=== PATIENT | female | born 1985 ===

== ENCOUNTER 2021-06-03 23:12 | Inpatient (IN) | payer OTHER, SELFPAY ==
[2021-06-04] MEDS ORDERED: SODIUM CHLORIDE 0.9% 1000 ML 1,000 ML IV ONE (00:46)
--- NOTE | 2021-06-04 00:49 | Event Note ---
ED Screening Note Date of service: 06/04/21 Time: 00:47 ED Screening Note: 35-year-old female patient presents to emergency department with complaints of fever, chest pain, and shortness of breath for 1 week. No known sick contacts. No current steroid or antibiotic use. No recent travel. Last dose of Tylenol was this morning. Patient has not received her COVID-19 vaccination series. Blood pressure in triage 96/62. Pulse oximetry 90%. General: Awake, appropriately interactive, no acute distress. Neck: Supple. Full range of motion intact. Cardiovascular: Normal peripheral perfusion. Pulmonary: No respiratory distress. Patient is speaking normally without use of accessory muscles. Skin: No apparent rashes or lesions. Neurological: No facial asymmetry. Speech is clear. Follows commands. Patient is alert and oriented. Musculoskeletal: Moves all four extremities spontaneously with normal range of motion. Psych: Cooperative. Appropriate mood and affect. Ordered labs, chest x-ray, IV fluids, and blood cultures per sepsis protocol. media monitor and continuous pulse oximetry monitoring requested. Peripheral IV access requested. Attending emergency physician aware. I have greeted and performed a focused rapid initial assessment of this patient. A comprehensive ED assessment and evaluation of the patient, analysis of all test results, and completion of the medical decision-making process will be conducted by additional ED providers. This initial assessment/diagnostic orders/clinical plan/treatment(s) is/are subject to change based on patients health status, clinical progression and re-assessment. Further treatment and workup at subsequent clinical provider's discretion. Patient/guardian urged not to elope from the ED as their condition may be serious if not clinically assessed and managed.
[2021-06-04 01:00] LABS: Basophils % (Auto) 0.1 % (0.0-1.8); Hematocrit 42.4 % (30.3-42.9); Hemoglobin 14.8 gm/dl (10.1-14.3); Lymphocytes # (Auto) 1.3 K/mm3 (1.2-5.4); Lymphocytes % (Auto) 11.6 % (13.4-35.0); Mean Corpuscular HGB Conc 35 % (30-34); Mean Corpuscular Volume 90 fl (79-97); Monocytes # (Auto) 0.5 K/mm3 (0.0-0.8); Monocytes % (Auto) 4.6 % (0.0-7.3); Platelet Count 217 K/mm3 (140-440); Red Blood Count 4.73 M/mm3 (3.65-5.03)
--- NOTE | 2021-06-04 01:08 | XRay Report ---
CHEST 1 VIEW 06/04/2021 12:41 AM INDICATION / CLINICAL INFORMATION: OCTAVIO. COMPARISON: None available. FINDINGS: SUPPORT DEVICES: None. HEART / MEDIASTINUM: No significant abnormality. LUNGS / PLEURA: Diffuse bilateral patchy opacities No pneumothorax. ADDITIONAL FINDINGS: No significant additional findings. IMPRESSION: 1. Diffuse bilateral pulmonary opacities could represent pneumonia. Follow-up recommended. Signer Name: Mike Mccall MD Signed: 06/04/2021 1:04 AM Workstation Name: [email or web address]
[2021-06-04 01:19] LABS: Alanine Aminotransferase 56 units/L (7-56); Albumin 3.8 g/dL (3.9-5); BUN/Creatinine Ratio 15; Blood Urea Nitrogen 9 mg/dL (7-17); Hemolysis Index 1
[2021-06-04] MEDS ORDERED: cefTRIAXone/NS 2 GM/100 ML 2 GM/100 ML BAG IV ONE (06:09)
[2021-06-04] MEDS ORDERED: AZITHROMYCIN/NS 500 MG/250 ML 500 MG/250 ML BAG IV ONE (06:09)
[2021-06-04] MEDS ORDERED: dexAMETHasone 4 MG/ML VIAL IV ONE (06:09)
--- NOTE | 2021-06-04 06:38 | Emergency Department Report ---
ED Fever HPI - General Chief Complaint: Fever Stated Complaint: COVID LIKE SYMPTOMS Time Seen by Provider: 06/04/21 06:07 Source: patient Exam Limitations: language barrier - History of Present Illness Initial Comments: 35-year-old female with no significant past medical history presents to the hospital complaining of fevers, body aches, and nonproductive cough x1 week. Patient also having shortness of breath worse with exertion. She has a child at home with ear infection. Diarrhea without nausea or vomiting reported. She is not immunized for Covid. She had outpatient Covid test on the that was negative. Patient hypoxic with an O2 sat of 89 to 90% saturation on room air ED Review of Systems ROS: Stated complaint: COVID LIKE SYMPTOMS Other details as noted in HPI Comment: All other systems reviewed and negative ED Past Medical Hx - Past Medical History Previous Medical History?: No - Surgical History Past Surgical History?: No ED Physical Exam - General Limitations: No Limitations - Other Other exam information: General: No acute distress Head: Atraumatic Eyes: normal appearance Neck: Normal appearance, no midline tenderness Chest: Clear to auscultation bilaterally CV: Regular rate and rhythm Abdomen: Soft, normal bowel sounds, nontender, nondistended, no rebound or guarding Back: Normal inspection Extremity: Normal inspection, full range of motion, no calf tenderness or leg edema Neuro: Alert O x 3, no facial asymmetry, speech clear, no gross motor sensory deficit Psych: Appropriate behavior Skin: No rash ED Course Vital Signs 06/04/21 06/04/21 06/04/21 00:17 03:44 03:46 Temperature 98.3 F Pulse Rate 88 80 80 Respiratory 16 16 Rate Blood Pressure 109/60 Blood Pressure 109/60 [Left] Blood Pressure 96/62 [Right] O2 Sat by Pulse 90 90 89 Oximetry 06/04/21 06/04/21 06/04/21 05:59 06:00 06:16 Temperature Pulse Rate 70 Respiratory 22 Rate Blood Pressure 126/69 126/69 Blood Pressure [Left] Blood Pressure [Right] O2 Sat by Pulse 92 95 97 Oximetry ED Medical Decision Making - Lab Data Result diagrams: 06/04/21 00:42 06/04/21 00:42 Lab Results 06/04/21 06/04/21 06/04/21 Range/Units 00:42 00:42 00:56 WBC 11.3 H (4.5-11.0) K/mm3 RBC 4.73 (3.65-5.03) M/mm3 Hgb 14.8 H (10.1-14.3) gm/dl Hct 42.4 (30.3-42.9) % MCV 90 (79-97) fl MCH 31 (28-32) pg MCHC 35 H (30-34) % RDW 13.0 L (13.2-15.2) % Plt Count 217 (140-440) K/mm3 Lymph % (Auto) 11.6 L (13.4-35.0) % [place] % (Auto) 4.6 (0.0-7.3) % Eos % (Auto) 0.0 (0.0-4.3) % Baso % (Auto) 0.1 (0.0-1.8) % Lymph # (Auto) 1.3 (1.2-5.4) K/mm3 [place] # (Auto) 0.5 (0.0-0.8) K/mm3 Eos # (Auto) 0.0 (0.0-0.4) K/mm3 Baso # (Auto) 0.0 (0.0-0.1) K/mm3 Seg Neutrophils % 83.7 H (40.0-70.0) % Seg Neutrophils # 9.5 H (1.8-7.7) K/mm3 Sodium 140 (137-145) mmol/L Potassium 4.2 (3.6-5.0) mmol/L Chloride 102.0 (98-107) mmol/L Carbon Dioxide 30 (22-30) mmol/L Anion Gap 12 mmol/L BUN 9 (7-17) mg/dL Creatinine 0.6 (0.6-1.2) mg/dL Estimated GFR > 60 ml/min BUN/Creatinine Ratio 15 % Glucose 150 H (65-100) mg/dL Lactic Acid 2.40 H* (0.7-2.0) mmol/L Calcium 9.0 (8.4-10.2) mg/dL Magnesium (1.7-2.3) mg/dL Total Bilirubin 0.50 (0.1-1.2) mg/dL AST 36 (5-40) units/L ALT 56 (7-56) units/L Alkaline Phosphatase 75 (35-129) units/L Total Protein 7.2 (6.3-8.2) g/dL Albumin 3.8 L (3.9-5) g/dL Albumin/Globulin Ratio 1.1 % HCG, Qual (Negative) 06/04/21 06/04/21 06/04/21 Range/Units 00:56 00:56 01:52 WBC (4.5-11.0) K/mm3 RBC (3.65-5.03) M/mm3 Hgb (10.1-14.3) gm/dl Hct (30.3-42.9) % MCV (79-97) fl MCH (28-32) pg MCHC (30-34) % RDW (13.2-15.2) % Plt Count (140-440) K/mm3 Lymph % (Auto) (13.4-35.0) % [place] % (Auto) (0.0-7.3) % Eos % (Auto) (0.0-4.3) % Baso % (Auto) (0.0-1.8) % Lymph # (Auto) (1.2-5.4) K/mm3 [place] # (Auto) (0.0-0.8) K/mm3 Eos # (Auto) (0.0-0.4) K/mm3 Baso # (Auto) (0.0-0.1) K/mm3 Seg Neutrophils % (40.0-70.0) % Seg Neutrophils # (1.8-7.7) K/mm3 Sodium (137-145) mmol/L Potassium (3.6-5.0) mmol/L Chloride (98-107) mmol/L Carbon Dioxide (22-30) mmol/L Anion Gap mmol/L BUN (7-17) mg/dL Creatinine (0.6-1.2) mg/dL Estimated GFR ml/min BUN/Creatinine Ratio % Glucose (65-100) mg/dL Lactic Acid 2.00 (0.7-2.0) mmol/L Calcium (8.4-10.2) mg/dL Magnesium 2.10 (1.7-2.3) mg/dL Total Bilirubin (0.1-1.2) mg/dL AST (5-40) units/L ALT (7-56) units/L Alkaline Phosphatase (35-129) units/L Total Protein (6.3-8.2) g/dL Albumin (3.9-5) g/dL Albumin/Globulin Ratio % HCG, Qual Negative (Negative) 06/04/21 Range/Units 04:57 WBC (4.5-11.0) K/mm3 RBC (3.65-5.03) M/mm3 Hgb (10.1-14.3) gm/dl Hct (30.3-42.9) % MCV (79-97) fl MCH (28-32) pg MCHC (30-34) % RDW (13.2-15.2) % Plt Count (140-440) K/mm3 Lymph % (Auto) (13.4-35.0) % [place] % (Auto) (0.0-7.3) % Eos % (Auto) (0.0-4.3) % Baso % (Auto) (0.0-1.8) % Lymph # (Auto) (1.2-5.4) K/mm3 [place] # (Auto) (0.0-0.8) K/mm3 Eos # (Auto) (0.0-0.4) K/mm3 Baso # (Auto) (0.0-0.1) K/mm3 Seg Neutrophils % (40.0-70.0) % Seg Neutrophils # (1.8-7.7) K/mm3 Sodium (137-145) mmol/L Potassium (3.6-5.0) mmol/L Chloride (98-107) mmol/L Carbon Dioxide (22-30) mmol/L Anion Gap mmol/L BUN (7-17) mg/dL Creatinine (0.6-1.2) mg/dL Estimated GFR ml/min BUN/Creatinine Ratio % Glucose (65-100) mg/dL Lactic Acid 1.60 (0.7-2.0) mmol/L Calcium (8.4-10.2) mg/dL Magnesium (1.7-2.3) mg/dL Total Bilirubin (0.1-1.2) mg/dL AST (5-40) units/L ALT (7-56) units/L Alkaline Phosphatase (35-129) units/L Total Protein (6.3-8.2) g/dL Albumin (3.9-5) g/dL Albumin/Globulin Ratio % HCG, Qual (Negative) - Radiology Data Radiology results: report reviewed CHEST 1 VIEW 06/04/2021 12:41 AM INDICATION / CLINICAL INFORMATION: OCTAVIO. COMPARISON: None available. FINDINGS: SUPPORT DEVICES: None. HEART / MEDIASTINUM: No significant abnormality. LUNGS / PLEURA: Diffuse bilateral patchy opacities No pneumothorax. ADDITIONAL FINDINGS: No significant additional findings. IMPRESSION: 1. Diffuse bilateral pulmonary opacities could represent pneumonia. Follow-up recommended. - Medical Decision Making 35-year-old female no significant past medical history presents with possible bilateral interstitial pneumonia highly suspicious for COVID-19. Patient is not immunized. Patient does not meet criteria for severe sepsis or septic shock. Patient's MAP remained greater than 65 throughout duration ED stay with further improvement after normal saline 1 L bolus. Patient treated with Rocephin, gentamicin, Decadron, supplemental oxygenation. Patient to be admitted to the hospital service with ID consultation case d/w DR Jasmine at 8:16am, pt to be admitted Kd Critical Care Time: No Critical care attestation.: If time is entered above; I have spent that time in minutes in the direct care of this critically ill patient, excluding procedure time. ED Disposition Clinical Impression: Bilateral interstitial pneumonia, Hypoxia, Suspected COVID-19 virus infection, COVID-19 vaccination not done Disposition: ADMITTED INPATIENT Is pt being admited?: Yes Condition: Stable Instructions: Bacterial Pneumonia (ED) Time of Disposition: 06:38 (Dr Jasmine/Kd)
[2021-06-04 08:18] LABS: C-Reactive Protein 7.2 mg/dL (0.00-1.30)
[2021-06-04] MEDS ORDERED: ONDANSETRON 4 MG/2 ML INJ IV PRN (10:24)
[2021-06-04] MEDS ORDERED: ACETAMINOPHEN 325 MG TAB PO PRN (10:24)
[2021-06-04] MEDS ORDERED: MORPHINE 4 MG/1 ML INJ IV PRN (10:24)
[2021-06-04] MEDS ORDERED: HYDROcodone/ACETAMINOPHEN 5-325 MG TAB PO PRN (10:24)
--- NOTE | 2021-06-04 10:24 | History and Physical Report ---
History of Present Illness Date of examination: 06/04/21 Date of admission: 06/04/21 08:17 Chief complaint: Cough cold-like symptom, Covid suspect History of present illness: 35-year-old female with no significant past medical history presents to the hospital complaining of fevers, body aches, and nonproductive cough x1 week. Patient also having shortness of breath worse with exertion. She has a child at home with ear infection. Diarrhea without nausea or vomiting reported. She is not immunized for Covid. She had outpatient Covid test on the that was negative. Patient hypoxic with an O2 sat of 89 to 90% saturation on room air. Patient denies any chest pain. No headache or visual disturbances Past History Past Medical History: No medical history Past Surgical History: No surgical history Social history: no significant social history Family history: no significant family history Medications and Allergies Allergies Allergy/AdvReac Type Severity Reaction Status Date / Time No Known Allergies Allergy Unverified 06/04/21 00:16 Review of Systems All systems: negative Exam - Constitutional Vitals: Temp Pulse Resp BP Pulse Ox 98.3 F 70 22 126/69 97 06/04/21 00:17 06/04/21 06:16 06/04/21 06:16 06/04/21 06:16 06/04/21 06:16 General appearance: Present: no acute distress, well-nourished - EENT Eyes: Present: PERRL ENT: hearing intact, clear oral mucosa - Neck Neck: Present: supple, normal ROM - Respiratory Respiratory effort: normal Respiratory: bilateral: CTA - Cardiovascular Heart Sounds: Present: S1 & S2. Absent: rub, click - Extremities Extremities: pulses symmetrical, No edema Peripheral Pulses: within normal limits - Abdominal General gastrointestinal: Present: soft, non-tender, non-distended, normal bowel sounds Female genitourinary: Present: normal - Integumentary Integumentary: Present: clear, warm, dry - Musculoskeletal Musculoskeletal: gait normal, strength equal bilaterally - Psychiatric Psychiatric: appropriate mood/affect, intact judgment & insight - Neurologic Neurologic: CNII-XII intact, moves all extremities Results - Labs CBC & Chem 7: 06/04/21 00:42 06/04/21 06:53 Labs: Laboratory Last Values WBC 11.3 K/mm3 (4.5-11.0) H 06/04/21 00:42 RBC 4.73 M/mm3 (3.65-5.03) 06/04/21 00:42 Hgb 14.8 gm/dl (10.1-14.3) H 06/04/21 00:42 Hct 42.4 % (30.3-42.9) 06/04/21 00:42 MCV 90 fl (79-97) 06/04/21 00:42 MCH 31 pg (28-32) 06/04/21 00:42 MCHC 35 % (30-34) H 06/04/21 00:42 RDW 13.0 % (13.2-15.2) L 06/04/21 00:42 Plt Count 217 K/mm3 (140-440) 06/04/21 00:42 Lymph % (Auto) 11.6 % (13.4-35.0) L 06/04/21 00:42 [place] % (Auto) 4.6 % (0.0-7.3) 06/04/21 00:42 Eos % (Auto) 0.0 % (0.0-4.3) 06/04/21 00:42 Baso % (Auto) 0.1 % (0.0-1.8) 06/04/21 00:42 Lymph # (Auto) 1.3 K/mm3 (1.2-5.4) 06/04/21 00:42 [place] # (Auto) 0.5 K/mm3 (0.0-0.8) 06/04/21 00:42 Eos # (Auto) 0.0 K/mm3 (0.0-0.4) 06/04/21 00:42 Baso # (Auto) 0.0 K/mm3 (0.0-0.1) 06/04/21 00:42 Seg Neutrophils % 83.7 % (40.0-70.0) H 06/04/21 00:42 Seg Neutrophils # 9.5 K/mm3 (1.8-7.7) H 06/04/21 00:42 D-Dimer 216.93 ng/mlDDU (0-234) 06/04/21 06:53 Sodium 140 mmol/L (137-145) 06/04/21 00:42 Potassium 4.2 mmol/L (3.6-5.0) 06/04/21 00:42 Chloride 102.0 mmol/L (98-107) 06/04/21 00:42 Carbon Dioxide 30 mmol/L (22-30) 06/04/21 00:42 Anion Gap 12 mmol/L 06/04/21 00:42 BUN 9 mg/dL (7-17) 06/04/21 00:42 Creatinine 0.6 mg/dL (0.6-1.2) 06/04/21 00:42 Estimated GFR > 60 ml/min 06/04/21 00:42 BUN/Creatinine Ratio 15 % 06/04/21 00:42 Glucose 128 mg/dL (65-100) H 06/04/21 06:53 Lactic Acid 1.60 mmol/L (0.7-2.0) 06/04/21 04:57 Calcium 9.0 mg/dL (8.4-10.2) 06/04/21 00:42 Magnesium 2.10 mg/dL (1.7-2.3) 06/04/21 00:56 Ferritin 840.9 ng/mL (10.0-200.0) H 06/04/21 06:53 Total Bilirubin 0.50 mg/dL (0.1-1.2) 06/04/21 00:42 AST 36 units/L (5-40) 06/04/21 00:42 ALT 56 units/L (7-56) 06/04/21 00:42 Alkaline Phosphatase 75 units/L (35-129) 06/04/21 00:42 Lactate Dehydrogenase 297 units/L (91-180) H 06/04/21 06:53 C-Reactive Protein 7.20 mg/dL (0.00-1.30) H 06/04/21 06:53 Total Protein 7.2 g/dL (6.3-8.2) 06/04/21 00:42 Albumin 3.8 g/dL (3.9-5) L 06/04/21 00:42 Albumin/Globulin Ratio 1.1 % 06/04/21 00:42 HCG, Qual Negative (Negative) 06/04/21 00:56 Microbiology: Microbiology 06/04/21 00:56 Peripheral/Venous Blood Culture - Preliminary Culture in Progress 06/04/21 00:52 Peripheral/Venous Blood Culture - Preliminary Culture in Progress Assessment and Plan Assessment and plan: Suspected COVID-19 pneumonia. Chest x-ray reveals bilateral opacities employer relations representative of pneumonia. Bilateral pneumonia. SIRS. The patient remains afebrile with white count of 11.3. Patient does have tachypnea with respiratory rate of 22. 06/04/2021. The patient will be admitted and placed on the Covid protocol. The patient appears to have mild hypoxia present. We will start dexamethasone empirically for now. Hold on remdesivir for now. ID consultation. Continue to trend inflammatory markers. Initial inflammatory markers reveal D-dimer 216, LDH 297, CRP 7.2 and ferritin 840. Check procalcitonin levels.
[2021-06-04] MEDS ORDERED: MORPHINE 2 MG/1 ML INJ IV PRN (10:45)
--- NOTE | 2021-06-04 17:19 | Consultation ---
History of Present Illness - Reason for Consult Consult date: 06/04/21 COVID - History of Present Illness 25-year-old female with history of obesity, admitted on 06/04/2021 secondary to a week history of body aches, malaise, fever, cough and progressive shortness of breath. She also reported diarrhea. She did not receive COVID-19 vaccination. She tested negative for COVID-19 on 05/31/2021. On arrival, O2 sat down to 89%. Chest x-ray with bilateral diffuse airspace disease. Review of Systems: reviewed ED and H&P notes. Review of system deferred to minimize COVID-19 transmission. Past History Past Medical History: No medical history Past Surgical History: No surgical history Social history: no significant social history Family history: no significant family history Medications and Allergies Allergies Allergy/AdvReac Type Severity Reaction Status Date / Time No Known Allergies Allergy Unverified 06/04/21 00:16 Active Meds: Active Medications Acetaminophen (Acetaminophen 325 Mg Tab) 650 mg PO Q4H PRN PRN Reason: Pain MILD(1-3)/Fever >100.5/[place] Hydrocodone Bitart/Acetaminophen (Hydrocodone/Acetaminophen 5-325 Mg Tab) 2 each PO Q6H PRN PRN Reason: Pain, Moderate (4-6) Azithromycin (Zithromax/Ns) 500 mg in 250 mls @ 250 mls/hr IV Q24H NELLI; Protocol Stop: 06/08/21 08:59 Morphine Sulfate (Morphine 2 Mg/1 Ml Inj) 1 mg IV Q4H PRN PRN Reason: Pain , Severe (7-10) Ondansetron HCl (Ondansetron 4 Mg/2 Ml Inj) 4 mg IV Q8H PRN PRN Reason: Nausea And Vomiting Sodium Chloride (Sodium Chloride 0.9% 10 Ml Flush Syringe) 10 ml IV BID NELLI Sodium Chloride (Sodium Chloride 0.9% 10 Ml Flush Syringe) 10 ml IV PRN PRN PRN Reason: LINE FLUSH Last Admin: 06/04/21 11:05 Dose: 10 ml Documented by: Physical Examination - Physical Exam Narrative exam: Physical exam deferred to minimize COVID-19 transmission during pandemic. - Constitutional Vitals: Vital Signs Temp Pulse Resp BP Pulse Ox 98.4 F 58 L 20 116/62 96 06/04/21 16:08 06/04/21 16:08 06/04/21 16:08 06/04/21 16:08 06/04/21 16:08 Temperature -Last 24 Hours Temperature 98.4 F Temperature 99.6 F Temperature 99.6 F Temperature 98.3 F Results - Labs CBC & Chem 7: 06/04/21 00:42 06/04/21 12:17 Labs: Abnormal lab results 06/04/21 06/04/21 06/04/21 Range/Units 00:42 00:42 00:56 WBC 11.3 H (4.5-11.0) K/mm3 Hgb 14.8 H (10.1-14.3) gm/dl MCHC 35 H (30-34) % RDW 13.0 L (13.2-15.2) % Lymph % (Auto) 11.6 L (13.4-35.0) % Seg Neutrophils % 83.7 H (40.0-70.0) % Seg Neutrophils # 9.5 H (1.8-7.7) K/mm3 D-Dimer (0-234) ng/mlDDU Glucose 150 H (65-100) mg/dL Lactic Acid 2.40 H* (0.7-2.0) mmol/L Ferritin (10.0-200.0) ng/mL Lactate Dehydrogenase (91-180) units/L C-Reactive Protein (0.00-1.30) mg/dL Albumin 3.8 L (3.9-5) g/dL Coronavirus (PCR) (Negative) 06/04/21 06/04/21 06/04/21 Range/Units 06:53 06:53 12:17 WBC (4.5-11.0) K/mm3 Hgb (10.1-14.3) gm/dl MCHC (30-34) % RDW (13.2-15.2) % Lymph % (Auto) (13.4-35.0) % Seg Neutrophils % (40.0-70.0) % Seg Neutrophils # (1.8-7.7) K/mm3 D-Dimer 470.51 H (0-234) ng/mlDDU Glucose 128 H (65-100) mg/dL Lactic Acid (0.7-2.0) mmol/L Ferritin 840.9 H (10.0-200.0) ng/mL Lactate Dehydrogenase 297 H (91-180) units/L C-Reactive Protein 7.20 H (0.00-1.30) mg/dL Albumin (3.9-5) g/dL Coronavirus (PCR) (Negative) 06/04/21 06/04/21 06/04/21 Range/Units 12:17 12:17 Unknown WBC (4.5-11.0) K/mm3 Hgb (10.1-14.3) gm/dl MCHC (30-34) % RDW (13.2-15.2) % Lymph % (Auto) (13.4-35.0) % Seg Neutrophils % (40.0-70.0) % Seg Neutrophils # (1.8-7.7) K/mm3 D-Dimer (0-234) ng/mlDDU Glucose 158 H (65-100) mg/dL Lactic Acid (0.7-2.0) mmol/L Ferritin 965.7 H (10.0-200.0) ng/mL Lactate Dehydrogenase 321 H (91-180) units/L C-Reactive Protein 9.00 H (0.00-1.30) mg/dL Albumin (3.9-5) g/dL Coronavirus (PCR) Positive A (Negative) Assessment and Plan Cultures: Blood culture 06/04/2021 pending SARS CoV2 PCR positive Assessment: 25-year-old female with history of obesity, admitted on 06/04/2021 secondary to a week history of body aches, malaise, fever, cough and progressive shortness of breath: #Severe sepsis: Present on admission with hypoxia, hypotension, leukocytosis, elevated lactate; likely secondary to COVID-19. Procalcitonin low. #Severe COVID pneumonia: CXR with bilateral pneumonia. Infllammatory markers elevated. D-dimer 470. CRP 7.9-->9. #Acute hypoxemic respiratory failure: O2 sat down to 89%, currently on 2 L. Recommendations: -Start Dexamethasone 6 mg IV/PO daily for 10 days -Start Remdesivir for 5 days (CrCl>30 mg/mL) -Monitor inflammatory markers - ferritin, Ddimer, CRP, LDH -Monitor liver function test on Remdesivir Ordered -Continue anticoagulation per System Protocol -Prone positioning as possible -Stop azithromycin, procalcitonin <0.25 ng/mL All laboratory, cultures and imaging were reviewed. Will follow Jasmine Loo MD Infectious Diseases [employer] [facility] ([facility] M [phone] O [phone]
[2021-06-05 06:35] LABS: Basophils % (Auto) 0.1 % (0.0-1.8); Eosinophils % (Auto) 0.1 % (0.0-4.3); Hematocrit 39.8 % (30.3-42.9); Hemoglobin 13.6 gm/dl (10.1-14.3); Lymphocytes # (Auto) 1.3 K/mm3 (1.2-5.4); Lymphocytes % (Auto) 19.6 % (13.4-35.0); Mean Corpuscular HGB Conc 34 % (30-34); Mean Corpuscular Volume 92 fl (79-97); Monocytes # (Auto) 0.5 K/mm3 (0.0-0.8); Monocytes % (Auto) 8.5 % (0.0-7.3); Platelet Count 243 K/mm3 (140-440); Red Blood Count 4.35 M/mm3 (3.65-5.03); Red Cell Distribution Width 13.4 % (13.2-15.2)
[2021-06-05 06:51] LABS: Blood Urea Nitrogen 13 mg/dL (7-17); Calcium 8.5 mg/dL (8.4-10.2); Hemolysis Index 45
[2021-06-05 07:29] LABS: BUN/Creatinine Ratio 26
[2021-06-05] MEDS ORDERED: AZITHROMYCIN/NS 500 MG/250 ML 500 MG/250 ML BAG IV SCH (08:00)
[2021-06-05] MEDS ORDERED: REMDESIVIR 200 MG in SODIUM CHLORIDE 0.9% 250ML 250 ML IV ONE (10:00)
--- NOTE | 2021-06-05 10:18 | Progress Note ---
Assessment and Plan - Patient Problems (1) Acute respiratory failure with hypoxia Current Visit: Yes Status: Acute Plan to address problem: Continue oxygen supplementation and IV Decadron ID consult (2) SIRS (systemic inflammatory response syndrome) Current Visit: Yes Status: Acute Plan to address problem: All inflammatory markers are elevated consistent with systemic inflammatory response syndrome (3) Bilateral interstitial pneumonia Current Visit: Yes Status: Acute Plan to address problem: Continue IV antibiotics (4) Pneumonia due to COVID-19 virus Current Visit: Yes Status: Acute Plan to address problem: Continue IV Decadron Remdesivir to be added (5) COVID-19 vaccination not done Current Visit: Yes Status: Acute Plan to address problem: Patient counseled about Covid vaccination Patient to take vaccination 6 weeks after discharge (6) DVT prophylaxis Current Visit: Yes Status: Acute Plan to address problem: On Lovenox and GI prophylaxis Subjective Date of service: 06/05/21 Principal diagnosis: Acute respiratory failure with hypoxia, COVID-pneumonia Interval history: 35-year-old female with no significant past medical history presents to the hospital complaining of fevers, body aches, and nonproductive cough x1 week. Patient also having shortness of breath worse with exertion. She has a child at home with ear infection. Diarrhea without nausea or vomiting reported. She is not immunized for Covid. She had outpatient Covid test on the that was neg ative. Patient hypoxic with an O2 sat of 89 to 90% saturation on room air. Patient denies any chest pain. No headache or visual disturbances. 06/05/2021 Patient is positive for Covid Patient is on 4 to 6 L of nasal cannula oxygen Patient is doing well otherwise Objective - Constitutional Vitals: Vital Signs - 12hr 06/04/21 06/04/21 06/04/21 22:15 22:52 23:00 Temperature 97.9 F Pulse Rate 59 L Respiratory 18 Rate Blood Pressure 117/57 O2 Sat by Pulse 91 92 95 Oximetry 06/05/21 06/05/21 04:29 09:44 Temperature 98.7 F Pulse Rate 54 L Respiratory 18 Rate Blood Pressure 115/63 O2 Sat by Pulse 96 96 Oximetry General appearance: Present: no acute distress, well-nourished - EENT Eyes: PERRL, EOM intact ENT: hearing intact, clear oral mucosa Ears: bilateral: normal - Neck Neck: supple, normal ROM - Respiratory Respiratory effort: normal Respiratory: bilateral: CTA - Breasts Breasts: normal - Cardiovascular Heart rate: 78 Rhythm: regular Heart Sounds: Present: S1 & S2. Absent: gallop, rub Extremities: pulses intact, No edema, normal color, Full ROM - Gastrointestinal General gastrointestinal: Present: soft, non-tender, non-distended, normal bowel sounds - Genitourinary Female genitourinary: normal - Integumentary Integumentary: clear, warm, dry - Musculoskeletal Musculoskeletal: 1, strength equal bilaterally - Neurologic Neurologic: moves all extremities - Psychiatric Psychiatric: memory intact, appropriate mood/affect, intact judgment & insight - Labs CBC & Chem 7: 06/05/21 05:26 06/06/21 05:43 Labs: Abnormal lab results 06/04/21 06/04/21 06/04/21 Range/Units 12:17 12:17 12:17 [place] % (Auto) (0.0-7.3) % Seg Neutrophils % (40.0-70.0) % D-Dimer 470.51 H (0-234) ng/mlDDU Creatinine (0.6-1.2) mg/dL Glucose 158 H (65-100) mg/dL Ferritin 965.7 H (10.0-200.0) ng/mL Lactate Dehydrogenase 321 H (91-180) units/L C-Reactive Protein 9.00 H (0.00-1.30) mg/dL Coronavirus (PCR) (Negative) 06/04/21 06/05/21 06/05/21 Range/Units Unknown 05:26 05:26 [place] % (Auto) 8.5 H (0.0-7.3) % Seg Neutrophils % 71.7 H (40.0-70.0) % D-Dimer (0-234) ng/mlDDU Creatinine 0.5 L (0.6-1.2) mg/dL Glucose 126 H (65-100) mg/dL Ferritin (10.0-200.0) ng/mL Lactate Dehydrogenase (91-180) units/L C-Reactive Protein (0.00-1.30) mg/dL Coronavirus (PCR) Positive A (Negative)
[2021-06-05] MEDS: FAMOTIDINE 20 MG TAB PO SCH ×2 (11:40→23:12)
[2021-06-05] MEDS: DEXAMETHASONE 4 MG TAB PO SCH (11:40)
[2021-06-05] MEDS: ENOXAPARIN 40 MG/0.4 ML INJ SUB-Q SCH (11:40)
[2021-06-05] MEDS: SODIUM CHLORIDE 0.9% 50 ML IVPB IV SCH (13:57)
[2021-06-06 06:34] LABS: Alanine Aminotransferase 67 units/L (7-56); Albumin 3.3 g/dL (3.9-5); Blood Urea Nitrogen 13 mg/dL (7-17); Calcium 8.6 mg/dL (8.4-10.2); Hemolysis Index 10
[2021-06-06 06:35] LABS: BUN/Creatinine Ratio 33
[2021-06-06] MEDS: ENOXAPARIN 40 MG/0.4 ML INJ SUB-Q SCH (10:24)
[2021-06-06] MEDS: DEXAMETHASONE 4 MG TAB PO SCH (10:24)
[2021-06-06] MEDS: FAMOTIDINE 20 MG TAB PO SCH ×2 (10:24→21:36)
[2021-06-06] MEDS: guaiFENesin/CODEINE 100-10MG ORAL LIQD 5 ML PO PRN ×2 (14:54→21:36)
[2021-06-06] MEDS: REMDESIVIR 100 MG in SODIUM CHLORIDE 0.9% 250ML 250 ML IV SCH (21:37)
[2021-06-06] MEDS: SODIUM CHLORIDE 0.9% 50 ML IVPB IV SCH (21:37)
--- NOTE | 2021-06-07 05:45 | Progress Note ---
Assessment and Plan - Patient Problems (1) Acute respiratory failure with hypoxia Current Visit: Yes Status: Acute Plan to address problem: Continue oxygen supplementation and IV Decadron ID consult appreciated Patient is also on remdesivir Monitor LFTs (2) SIRS (systemic inflammatory response syndrome) Current Visit: Yes Status: Acute Plan to address problem: All inflammatory markers are elevated consistent with systemic inflammatory response syndrome (3) Bilateral interstitial pneumonia Current Visit: Yes Status: Acute Plan to address problem: Antibiotics were stopped (4) Pneumonia due to COVID-19 virus Current Visit: Yes Status: Acute Plan to address problem: Continue IV Decadron Continue remdesivir (5) COVID-19 vaccination not done Current Visit: Yes Status: Acute Plan to address problem: Patient counseled about Covid vaccination Patient to take vaccination 6 weeks after discharge (6) DVT prophylaxis Current Visit: Yes Status: Acute Plan to address problem: On Lovenox and GI prophylaxis Subjective Date of service: 06/06/21 Principal diagnosis: Acute respiratory failure with hypoxia, COVID-pneumonia Interval history: 35-year-old female with no significant past medical history presents to the hospital complaining of fevers, body aches, and nonproductive cough x1 week. Patient also having shortness of breath worse with exertion. She has a child at home with ear infection. Diarrhea without nausea or vomiting reported. She is not immunized for Covid. She had outpatient Covid test on the that was negative. Patient hypoxic with an O2 sat of 89 to 90% saturation on room air. Patient denies any chest pain. No headache or visual disturbances. 06/05/2021 Patient is positive for Covid Patient is on 4 to 6 L of nasal cannula oxygen Patient is doing well otherwise 06/06/2021 Patient is positive for Covid Patient 4 to 6 L of nasal cannula oxygen Patient is otherwise stable Objective - Constitutional Vitals: Vital Signs - 12hr 06/06/21 06/06/21 06/06/21 20:00 22:33 23:55 Temperature 97.8 F Pulse Rate 46 L Respiratory 20 Rate Blood Pressure 101/54 O2 Sat by Pulse 92 97 91 Oximetry 06/07/21 05:16 Temperature 98.7 F Pulse Rate 44 L Respiratory 20 Rate Blood Pressure 106/48 O2 Sat by Pulse 94 Oximetry General appearance: Present: no acute distress, well-nourished - EENT Eyes: PERRL, EOM intact ENT: hearing intact, clear oral mucosa Ears: bilateral: normal - Neck Neck: supple, normal ROM - Respiratory Respiratory effort: normal Respiratory: bilateral: CTA - Breasts Breasts: normal - Cardiovascular Heart rate: 78 Rhythm: regular Heart Sounds: Present: S1 & S2. Absent: gallop, rub Extremities: pulses intact, No edema, normal color, Full ROM - Gastrointestinal General gastrointestinal: Present: soft, non-tender, non-distended, normal bowel sounds - Genitourinary Female genitourinary: normal - Integumentary Integumentary: clear, warm, dry - Musculoskeletal Musculoskeletal: 1, strength equal bilaterally - Neurologic Neurologic: moves all extremities - Psychiatric Psychiatric: memory intact, appropriate mood/affect, intact judgment & insight - Labs CBC & Chem 7: 06/05/21 05:26 06/06/21 05:43 Labs: Abnormal lab results 06/06/21 Range/Units 05:43 Sodium 136 L (137-145) mmol/L Creatinine 0.4 L (0.6-1.2) mg/dL Glucose 127 H (65-100) mg/dL ALT 67 H (7-56) units/L Albumin 3.3 L (3.9-5) g/dL
[2021-06-07 08:56] LABS: Alanine Aminotransferase 59 units/L (7-56); Albumin 3.2 g/dL (3.9-5); Blood Urea Nitrogen 14 mg/dL (7-17); Calcium 8.7 mg/dL (8.4-10.2); Hemolysis Index 9
[2021-06-07 08:57] LABS: C-Reactive Protein 1.7 mg/dL (0.00-1.30)
[2021-06-07 09:02] LABS: BUN/Creatinine Ratio 28
--- NOTE | 2021-06-07 09:56 | Progress Note ---
Assessment and Plan Assessment and plan: -- Acute respiratory failure with hypoxia Current Visit: Yes Status: Acute Currently requiring 2 L of nasal cannula oxygen and IV Decadron And on remdesivir,ID following, monitor LFTs, Home O2 evaluation, home oxygen set up as needed per case management --SIRS (systemic inflammatory response syndrome) Current Visit: Yes Status: Acute All inflammatory markers are elevated consistent with systemic inflammatory response syndrome -- Bilateral interstitial pneumonia Current Visit: Yes Status: Acute Empiric antibiotics antibiotics were stopped As procalcitonin levels are normal range --Pneumonia due to COVID-19 virus Current Visit: Yes Status: Acute Continue IV Decadron, Continue remdesivir Supplemental oxygen, prone positioning --COVID-19 vaccination not done Current Visit: Yes Status: Acute Patient counseled about Covid vaccination Patient to take vaccination 6 weeks after discharge --DVT prophylaxis Current Visit: Yes Status: Acute On Lovenox and GI prophylaxis DC planning per case management; Home O2 evaluation and home O2 set up if needed Subjective Date of service: 06/06/21 Principal diagnosis: Acute respiratory failure with hypoxia, COVID-pneumonia Interval history: 35-year-old female with no significant past medical history presents to the hospital complaining of fevers, body aches, and nonproductive cough x1 week. Patient also having shortness of breath worse with exertion. She has a child at home with ear infection. Diarrhea without nausea or vomiting reported. She is not immunized for Covid. She had outpatient Covid test on the that was negative. Patient hypoxic with an O2 sat of 89 to 90% saturation on room air. Patient denies any chest pain. No headache or visual disturbances. 06/05/2021 Patient is positive for Covid Patient is on 4 to 6 L of nasal cannula oxygen Patient is doing well otherwise 06/06/2021 Patient is positive for Covid Patient 4 to 6 L of nasal cannula oxygen Patient is otherwise stable 06/07/2021; patient is requiring 2 L of nasal cannula oxygen Recheck 6-minute walk test, set up home O2 as needed Currently receiving remdesivir dexamethasone History Interval history: I seen and examined the patient at the bedside this morning Isolation precautions and PPE protocols observed per COVID-19 guidelines Patient feels slightly better on 2 L of nasal cannula oxygen currently on remdesivir and dexamethasone No new complaints Hospitalist Physical - Constitutional Vitals: Temp Pulse Resp BP Pulse Ox 98.7 F 44 L 20 106/48 94 06/07/21 05:16 06/07/21 05:16 06/07/21 05:16 06/07/21 05:16 06/07/21 05:16 General appearance: Present: mild distress, well-nourished - EENT Eyes: Present: PERRL, EOM intact - Neck Neck: Present: supple, normal ROM - Respiratory Respiratory effort: normal Respiratory: bilateral: diminished, rhonchi, negative: rales, wheezing - Cardiovascular Rhythm: regular Heart Sounds: Present: S1 & S2 - Extremities Extremities: no ischemia, No edema - Abdominal General gastrointestinal: soft, non-tender, non-distended, normal bowel sounds - Integumentary Integumentary: Present: clear, warm - Psychiatric Psychiatric: appropriate mood/affect, cooperative - Neurologic Neurologic: CNII-XII intact, moves all extremities Results - Labs CBC & Chem 7: 06/05/21 05:26 06/07/21 07:57 Labs: Laboratory Last Values WBC 6.4 K/mm3 (4.5-11.0) 06/05/21 05:26 RBC 4.35 M/mm3 (3.65-5.03) 06/05/21 05:26 Hgb 13.6 gm/dl (10.1-14.3) 06/05/21 05:26 Hct 39.8 % (30.3-42.9) 06/05/21 05:26 MCV 92 fl (79-97) 06/05/21 05:26 MCH 31 pg (28-32) 06/05/21 05:26 MCHC 34 % (30-34) 06/05/21 05:26 RDW 13.4 % (13.2-15.2) 06/05/21 05:26 Plt Count 243 K/mm3 (140-440) 06/05/21 05:26 Lymph % (Auto) 19.6 % (13.4-35.0) 06/05/21 05:26 [place] % (Auto) 8.5 % (0.0-7.3) H 06/05/21 05:26 Eos % (Auto) 0.1 % (0.0-4.3) 06/05/21 05:26 Baso % (Auto) 0.1 % (0.0-1.8) 06/05/21 05:26 Lymph # (Auto) 1.3 K/mm3 (1.2-5.4) 06/05/21 05:26 [place] # (Auto) 0.5 K/mm3 (0.0-0.8) 06/05/21 05:26 Eos # (Auto) 0.0 K/mm3 (0.0-0.4) 06/05/21 05:26 Baso # (Auto) 0.0 K/mm3 (0.0-0.1) 06/05/21 05:26 Seg Neutrophils % 71.7 % (40.0-70.0) H 06/05/21 05:26 Seg Neutrophils # 4.6 K/mm3 (1.8-7.7) 06/05/21 05:26 D-Dimer 1164.72 ng/mlDDU (0-234) H 06/07/21 07:57 Sodium 140 mmol/L (137-145) 06/07/21 07:57 Potassium 4.2 mmol/L (3.6-5.0) 06/07/21 07:57 Chloride 106.1 mmol/L (98-107) 06/07/21 07:57 Carbon Dioxide 22 mmol/L (22-30) 06/07/21 07:57 Anion Gap 16 mmol/L 06/07/21 07:57 BUN 14 mg/dL (7-17) 06/07/21 07:57 Creatinine 0.5 mg/dL (0.6-1.2) L 06/07/21 07:57 Estimated GFR > 60 ml/min 06/07/21 07:57 BUN/Creatinine Ratio 28 % 06/07/21 07:57 Glucose 105 mg/dL (65-100) H 06/07/21 07:57 Glucose 107 mg/dL (65-100) H 06/07/21 07:57 Lactic Acid 1.60 mmol/L (0.7-2.0) 06/04/21 04:57 Calcium 8.7 mg/dL (8.4-10.2) 06/07/21 07:57 Magnesium 2.10 mg/dL (1.7-2.3) 06/04/21 00:56 Ferritin 642.3 ng/mL (10.0-200.0) H 06/07/21 07:57 Total Bilirubin 0.40 mg/dL (0.1-1.2) 06/07/21 07:57 AST 24 units/L (5-40) 06/07/21 07:57 ALT 59 units/L (7-56) H 06/07/21 07:57 Alkaline Phosphatase 62 units/L (35-129) 06/07/21 07:57 Lactate Dehydrogenase 240 units/L (91-180) H 06/07/21 07:57 C-Reactive Protein 1.70 mg/dL (0.00-1.30) H 06/07/21 07:57 Total Protein 6.8 g/dL (6.3-8.2) 06/07/21 07:57 Albumin 3.2 g/dL (3.9-5) L 06/07/21 07:57 Albumin/Globulin Ratio 0.9 % 06/07/21 07:57 Procalcitonin < 0.05 ng/mL (<0.15) 06/04/21 06:53 HCG, Qual Negative (Negative) 06/04/21 00:56 Coronavirus (PCR) Positive (Negative) A 06/04/21 Unknown Microbiology: Microbiology 06/04/21 00:56 Peripheral/Venous Blood Culture - Preliminary NO GROWTH AFTER 72 HOURS 06/04/21 00:52 Peripheral/Venous Blood Culture - Preliminary NO GROWTH AFTER 72 HOURS Mims/IV: Voiding Method Toilet Active Medications - Current Medications Current Medications: Generic Name Dose Route Start Last Admin Trade Name Freq PRN Reason Stop Dose Admin Acetaminophen 650 mg 06/04/21 10:24 Acetaminophen 325 Mg Tab PO Q4H PRN Pain MILD(1-3)/Fever >100.5/[place] Hydrocodone Bitart/Acetaminophen 2 each 06/04/21 10:24 Hydrocodone/Acetaminophen 5-325 Mg Tab PO Q6H PRN Pain, Moderate (4-6) Dexamethasone 6 mg 06/05/21 10:00 06/06/21 10:24 Dexamethasone 4 Mg Tab PO 06/14/21 10:01 6 mg DAILY NELLI Administration Enoxaparin Sodium 40 mg 06/05/21 10:00 06/06/21 10:24 Enoxaparin 40 Mg/0.4 Ml Inj SUB-Q 40 mg QDAY@1000 NELLI Administration Famotidine 20 mg 06/05/21 10:00 06/06/21 21:36 Famotidine 20 Mg Tab PO 20 mg BID NELLI Administration REMDESIVIR 100 mg/ Sodium 250 mls @ 500 mls/hr 06/06/21 21:00 06/06/21 21:37 Chloride IV 06/09/21 21:29 500 mls/hr Q24HR@2100 NELLI Administration Morphine Sulfate 1 mg 06/04/21 10:45 Morphine 2 Mg/1 Ml Inj IV Q4H PRN Pain , Severe (7-10) Ondansetron HCl 4 mg 06/04/21 10:24 Ondansetron 4 Mg/2 Ml Inj IV Q8H PRN Nausea And Vomiting Pseudoephedrine/Acetam/Chlorphenir 10 ml 06/06/21 13:18 06/06/21 21:36 Guaifenesin/Codeine 100-10mg Oral Liqd 5 Ml PO 10 ml Q6H PRN Administration Cough Sodium Chloride 10 ml 06/04/21 22:00 06/06/21 21:37 Sodium Chloride 0.9% 10 Ml Flush Syringe IV 10 ml BID NELLI Administration Sodium Chloride 10 ml 06/04/21 10:24 06/04/21 11:05 Sodium Chloride 0.9% 10 Ml Flush Syringe IV 10 ml PRN PRN Administration LINE FLUSH Sodium Chloride 50 ml 06/05/21 10:00 06/06/21 21:37 Sodium Chloride 0.9% 50 Ml Ivpb IV 06/09/21 21:01 50 ml Q24HR@2100 NELLI Administration
[2021-06-07] MEDS: DEXAMETHASONE 4 MG TAB PO SCH (11:00)
[2021-06-07] MEDS: FAMOTIDINE 20 MG TAB PO SCH (11:00)
[2021-06-07] MEDS: ENOXAPARIN 40 MG/0.4 ML INJ SUB-Q SCH (11:00)
--- NOTE | 2021-06-07 15:43 | Progress Note ---
Assessment and Plan Cultures: Blood culture 06/04/2021 pending SARS CoV2 PCR positive Assessment: 25-year-old female with history of obesity, admitted on 06/04/2021 secondary to a week history of body aches, malaise, fever, cough and progressive shortness of breath: #Severe sepsis: Present on admission with hypoxia, hypotension, leukocytosis, elevated lactate; likely secondary to COVID-19. Procalcitonin low. #Severe COVID pneumonia: CXR with bilateral pneumonia. Infllammatory markers elevated. D-dimer 470-->1164. CRP 7.9-->9-->1.7. #Acute hypoxemic respiratory failure: Patient is now on 4 L. Recommendations: -Consider CTA chest evaluation for PE, ddimer is up. -Continue dexamethasone 6 mg IV/PO daily for 10 days -Continue remdesivir D2 of 4 -Monitor inflammatory markers - ferritin, Ddimer, CRP, LDH -Monitor liver function test on Remdesivir Ordered -Continue anticoagulation per System Protocol -Prone positioning as possible Will follow Jasmine Loo MD Infectious Diseases [facility] [employer] [facility] M [phone] O [phone] Subjective Date of service: 06/07/21 Principal diagnosis: Acute respiratory failure with hypoxia, COVID-pneumonia Interval history: Patient is now on 4 L. Sats 90 to 91%. Objective - Exam Narrative Exam: Physical exam deferred to minimize COVID-19 transmission during pandemic. - Constitutional Vitals: Vital Signs Temp Pulse Resp BP Pulse Ox 98.7 F 44 L 20 106/48 97 06/07/21 05:16 06/07/21 05:16 06/07/21 05:16 06/07/21 05:16 06/07/21 10:00 Temperature -Last 24 Hours Temperature 98.7 F Temperature 97.8 F Temperature 97.9 F - Labs CBC & Chem 7: 06/05/21 05:26 06/07/21 07:57 Labs: Abnormal lab results 06/07/21 06/07/21 06/07/21 Range/Units 07:57 07:57 07:57 D-Dimer 1164.72 H (0-234) ng/mlDDU Creatinine 0.5 L (0.6-1.2) mg/dL Glucose 105 H 107 H (65-100) mg/dL Ferritin (10.0-200.0) ng/mL ALT 59 H (7-56) units/L Lactate Dehydrogenase 240 H (91-180) units/L C-Reactive Protein 1.70 H (0.00-1.30) mg/dL Albumin 3.2 L (3.9-5) g/dL 06/07/21 Range/Units 07:57 D-Dimer (0-234) ng/mlDDU Creatinine (0.6-1.2) mg/dL Glucose (65-100) mg/dL Ferritin 642.3 H (10.0-200.0) ng/mL ALT (7-56) units/L Lactate Dehydrogenase (91-180) units/L C-Reactive Protein (0.00-1.30) mg/dL Albumin (3.9-5) g/dL
--- NOTE | 2021-06-07 22:30 | Cat Scan Report ---
CTA CHEST WITH CONTRAST INDICATION / CLINICAL INFORMATION: COVID-19 / elevated D-dimer / Hypoxia. TECHNIQUE: Axial CT images were obtained through the chest after injection of 100 cc Omnipaque 350 IV contrast. 3 plane MIP and/or 3D reconstructions were produced. All CT scans at this location are per formed using CT dose reduction for ALARA by means of automated exposure control. COMPARISON: None available. FINDINGS: PULMONARY ARTERIES: No pulmonary emboli. Evaluation of the subsegmental arteries is limited. THORACIC AORTA: No significant abnormality. HEART: No significant abnormality. CORONARY ARTERY CALCIFICATION: None. MEDIASTINUM / JUAN: No significant abnormality. PLEURA: No pleural effusion. No pneumothorax. LUNGS: Bilateral scattered groundglass opacities with lower lobe predominance compatible with pneumon ia ADDITIONAL FINDINGS: None. UPPER ABDOMEN: Hepatic steatosis. SKELETAL STRUCTURES: No significant osseous abnormality. IMPRESSION: 1. No CT evidence for pulmonary embolism. 2. Bilateral COVID pneumonia. 3. Hepatic steatosis. Signer Name: Jesus Manuel Hirsch MD Signed: 06/07/2021 10:26 PM Workstation Name: [id number]
[2021-06-08] MEDS: REMDESIVIR 100 MG in SODIUM CHLORIDE 0.9% 250ML 250 ML IV SCH ×2 (01:12→20:40)
[2021-06-08] MEDS: FAMOTIDINE 20 MG TAB PO SCH ×3 (01:13→22:44)
[2021-06-08] MEDS: SODIUM CHLORIDE 0.9% 50 ML IVPB IV SCH ×2 (01:13→20:39)
[2021-06-08] MEDS: ENOXAPARIN 40 MG/0.4 ML INJ SUB-Q SCH (10:16)
[2021-06-08] MEDS: DEXAMETHASONE 4 MG TAB PO SCH (10:16)
[2021-06-08 11:05] LABS: Alanine Aminotransferase 68 units/L (7-56); Albumin 3.5 g/dL (3.9-5); Blood Urea Nitrogen 11 mg/dL (7-17); Calcium 8.9 mg/dL (8.4-10.2); Hemolysis Index 7
[2021-06-08 11:11] LABS: BUN/Creatinine Ratio 22
--- NOTE | 2021-06-08 16:23 | Progress Note ---
Assessment and Plan Cultures: Blood culture 06/04/2021 pending SARS CoV2 PCR positive Assessment: 25-year-old female with history of obesity, admitted on 06/04/2021 secondary to a week history of body aches, malaise, fever, cough and progressive shortness of breath: #Severe sepsis: Present on admission with hypoxia, hypotension, leukocytosis, elevated lactate; likely secondary to COVID-19. Procalcitonin low. #Severe COVID pneumonia: CXR with bilateral pneumonia. Infllammatory markers elevated. D-dimer 470-->1164. CRP 7.9-->9-->1.7. CT no PE, jaclyn groundglass opacities. #Acute hypoxemic respiratory failure: now on 2L, exercising O2 90% Recommendations: -Continue dexamethasone 6 mg IV/PO daily for 10 days -Continue remdesivir D3 of 5, no need to complete 5 day-course -Monitor inflammatory markers - ferritin, Ddimer, CRP, LDH -Monitor liver function test on Remdesivir Ordered -Continue anticoagulation per System Protocol -Prone positioning as possible will sign off please call me with questions Will follow Jasmine Loo MD Infectious Diseases [employer] [facility] M [phone] O [phone] Subjective Date of service: 06/08/21 Principal diagnosis: Acute respiratory failure with hypoxia, COVID-pneumonia Interval history: Remains on 2L no desaturation Objective - Exam Narrative Exam: Physical exam deferred to minimize COVID-19 transmission during pandemic. - Constitutional Vitals: Vital Signs Temp Pulse Resp BP Pulse Ox 98.9 F 61 20 94/54 91 06/08/21 11:48 06/08/21 11:48 06/08/21 11:48 06/08/21 11:48 06/08/21 11:48 Temperature -Last 24 Hours Temperature 98.9 F Temperature 98.0 F Temperature 98.2 F - Labs CBC & Chem 7: 06/05/21 05:26 06/08/21 08:54 Labs: Abnormal lab results 06/08/21 Range/Units 08:54 Creatinine 0.5 L (0.6-1.2) mg/dL Glucose 101 H (65-100) mg/dL ALT 68 H (7-56) units/L Albumin 3.5 L (3.9-5) g/dL
--- NOTE | 2021-06-08 19:09 | Progress Note ---
Assessment and Plan Assessment and plan: -- Acute respiratory failure with hypoxia Current Visit: Yes Status: Acute Patient is on 4 L of nasal cannula oxygen today Wean as tolerated, continue IV Decadron, remdesivir ID following, monitor LFTs, Home O2 evaluation, home oxygen set up as needed per case management Prone positioning --Elevated D-dimers Current Visit: Yes Status: Acute CTA chest negative for PE check lower extremity venous Doppler to rule out DVT --SIRS (systemic inflammatory response syndrome) Current Visit: Yes Status: Acute All inflammatory markers are elevated consistent with systemic inflammatory response syndrome -- Bilateral interstitial pneumonia Current Visit: Yes Status: Acute Empiric antibiotics antibiotics were stopped As procalcitonin levels are normal range --Pneumonia due to COVID-19 virus Current Visit: Yes Status: Acute Continue IV Decadron, Continue remdesivir Supplemental oxygen, prone positioning --COVID-19 vaccination not done Current Visit: Yes Status: Acute Patient counseled about Covid vaccination Patient to take vaccination 6 weeks after discharge --DVT prophylaxis Current Visit: Yes Status: Acute On Lovenox and GI prophylaxis DC planning per case management; Home O2 evaluation and home O2 set up if needed Subjective Date of service: 06/06/21 Principal diagnosis: Acute respiratory failure with hypoxia, COVID-pneumonia Interval history: 35-year-old female with no significant past medical history presents to the hospital complaining of fevers, body aches, and nonproductive cough x1 week. Patient also having shortness of breath worse with exertion. She has a child at home with ear infection. Diarrhea without nausea or vomiting reported. She is not immunized for Covid. She had outpatient Covid test on the that was negative. Patient hypoxic with an O2 sat of 89 to 90% saturation on room air. Patient denies any chest pain. No headache or visual disturbances. 06/05/2021 Patient is positive for Covid Patient is on 4 to 6 L of nasal cannula oxygen Patient is doing well otherwise 06/06/2021 Patient is positive for Covid Patient 4 to 6 L of nasal cannula oxygen Patient is otherwise stable 06/07/2021; patient is requiring 2 L of nasal cannula oxygen Recheck 6-minute walk test, set up home O2 as needed Currently receiving remdesivir dexamethasone 06/08/2021; CTA chest negative for PE Check lower extremity venous Doppler for DVT Continue steroids and remdesivir ID following Home O2 evaluation borderline Resting 92% Ambulatory 90% On oxygen 97% Patient reevaluate home O2 evaluation prior to discharge History Interval history: I have seen and examined the patient at the bedside this morning Patient's chart and medications reviewed Patient is on 4 L of nasal cannula oxygen CTA chest negative for PE Hospitalist Physical - Constitutional Vitals: Temp Pulse Resp BP Pulse Ox 97.9 F 53 L 20 96/49 94 06/08/21 16:34 06/08/21 16:34 06/08/21 16:34 06/08/21 16:34 06/08/21 16:34 General appearance: Present: mild distress, well-nourished, other (On 4 L of oxygen) - EENT Eyes: Present: PERRL, EOM intact - Neck Neck: Present: supple, normal ROM - Respiratory Respiratory effort: normal Respiratory: bilateral: diminished, rhonchi, negative: rales, wheezing - Cardiovascular Rhythm: regular Heart Sounds: Present: S1 & S2 - Extremities Extremities: no ischemia, No edema - Abdominal General gastrointestinal: soft, non-tender, non-distended, normal bowel sounds - Integumentary Integumentary: Present: clear, warm - Psychiatric Psychiatric: appropriate mood/affect, cooperative - Neurologic Neurologic: CNII-XII intact, moves all extremities Results - Labs CBC & Chem 7: 06/05/21 05:26 06/08/21 08:54 Labs: Laboratory Last Values WBC 6.4 K/mm3 (4.5-11.0) 06/05/21 05:26 RBC 4.35 M/mm3 (3.65-5.03) 06/05/21 05:26 Hgb 13.6 gm/dl (10.1-14.3) 06/05/21 05:26 Hct 39.8 % (30.3-42.9) 06/05/21 05:26 MCV 92 fl (79-97) 06/05/21 05:26 MCH 31 pg (28-32) 06/05/21 05:26 MCHC 34 % (30-34) 06/05/21 05:26 RDW 13.4 % (13.2-15.2) 06/05/21 05:26 Plt Count 243 K/mm3 (140-440) 06/05/21 05:26 Lymph % (Auto) 19.6 % (13.4-35.0) 06/05/21 05:26 [place] % (Auto) 8.5 % (0.0-7.3) H 06/05/21 05:26 Eos % (Auto) 0.1 % (0.0-4.3) 06/05/21 05:26 Baso % (Auto) 0.1 % (0.0-1.8) 06/05/21 05:26 Lymph # (Auto) 1.3 K/mm3 (1.2-5.4) 06/05/21 05:26 [place] # (Auto) 0.5 K/mm3 (0.0-0.8) 06/05/21 05:26 Eos # (Auto) 0.0 K/mm3 (0.0-0.4) 06/05/21 05:26 Baso # (Auto) 0.0 K/mm3 (0.0-0.1) 06/05/21 05:26 Seg Neutrophils % 71.7 % (40.0-70.0) H 06/05/21 05:26 Seg Neutrophils # 4.6 K/mm3 (1.8-7.7) 06/05/21 05:26 D-Dimer 1164.72 ng/mlDDU (0-234) H 06/07/21 07:57 Sodium 140 mmol/L (137-145) 06/08/21 08:54 Potassium 4.2 mmol/L (3.6-5.0) 06/08/21 08:54 Chloride 105.0 mmol/L (98-107) 06/08/21 08:54 Carbon Dioxide 25 mmol/L (22-30) 06/08/21 08:54 Anion Gap 14 mmol/L 06/08/21 08:54 BUN 11 mg/dL (7-17) 06/08/21 08:54 Creatinine 0.5 mg/dL (0.6-1.2) L 06/08/21 08:54 Estimated GFR > 60 ml/min 06/08/21 08:54 BUN/Creatinine Ratio 22 % 06/08/21 08:54 Glucose 101 mg/dL (65-100) H 06/08/21 08:54 Lactic Acid 1.60 mmol/L (0.7-2.0) 06/04/21 04:57 Calcium 8.9 mg/dL (8.4-10.2) 06/08/21 08:54 Magnesium 2.10 mg/dL (1.7-2.3) 06/04/21 00:56 Ferritin 642.3 ng/mL (10.0-200.0) H 06/07/21 07:57 Total Bilirubin 0.30 mg/dL (0.1-1.2) 06/08/21 08:54 AST 24 units/L (5-40) 06/08/21 08:54 ALT 68 units/L (7-56) H 06/08/21 08:54 Alkaline Phosphatase 66 units/L (35-129) 06/08/21 08:54 Lactate Dehydrogenase 240 units/L (91-180) H 06/07/21 07:57 C-Reactive Protein 1.70 mg/dL (0.00-1.30) H 06/07/21 07:57 Total Protein 6.9 g/dL (6.3-8.2) 06/08/21 08:54 Albumin 3.5 g/dL (3.9-5) L 06/08/21 08:54 Albumin/Globulin Ratio 1.0 % 06/08/21 08:54 Procalcitonin < 0.05 ng/mL (<0.15) 06/04/21 06:53 HCG, Qual Negative (Negative) 06/04/21 00:56 Coronavirus (PCR) Positive (Negative) A 06/04/21 Unknown Microbiology: Microbiology 06/04/21 00:56 Peripheral/Venous Blood Culture - Preliminary NO GROWTH AFTER 4 DAYS 06/04/21 00:52 Peripheral/Venous Blood Culture - Preliminary NO GROWTH AFTER 4 DAYS Mims/IV: Voiding Method Toilet Active Medications - Current Medications Current Medications: Generic Name Dose Route Start Last Admin Trade Name Freq PRN Reason Stop Dose Admin Acetaminophen 650 mg 06/04/21 10:24 Acetaminophen 325 Mg Tab PO Q4H PRN Pain MILD(1-3)/Fever >100.5/[place] Hydrocodone Bitart/Acetaminophen 2 each 06/04/21 10:24 Hydrocodone/Acetaminophen 5-325 Mg Tab PO Q6H PRN Pain, Moderate (4-6) Dexamethasone 6 mg 06/05/21 10:00 06/08/21 10:16 Dexamethasone 4 Mg Tab PO 06/14/21 10:01 6 mg DAILY NELLI Administration Enoxaparin Sodium 40 mg 06/05/21 10:00 06/08/21 10:16 Enoxaparin 40 Mg/0.4 Ml Inj SUB-Q 40 mg QDAY@1000 NELLI Administration Famotidine 20 mg 06/05/21 10:00 06/08/21 10:16 Famotidine 20 Mg Tab PO 20 mg BID NELLI Administration REMDESIVIR 100 mg/ Sodium 250 mls @ 500 mls/hr 06/06/21 21:00 06/08/21 01:12 Chloride IV 06/09/21 21:29 500 mls/hr Q24HR@2100 NELLI Administration Morphine Sulfate 1 mg 06/04/21 10:45 Morphine 2 Mg/1 Ml Inj IV Q4H PRN Pain , Severe (7-10) Ondansetron HCl 4 mg 06/04/21 10:24 Ondansetron 4 Mg/2 Ml Inj IV Q8H PRN Nausea And Vomiting Pseudoephedrine/Acetam/Chlorphenir 10 ml 06/06/21 13:18 06/06/21 21:36 Guaifenesin/Codeine 100-10mg Oral Liqd 5 Ml PO 10 ml Q6H PRN Administration Cough Sodium Chloride 10 ml 06/04/21 22:00 06/08/21 10:18 Sodium Chloride 0.9% 10 Ml Flush Syringe IV 10 ml BID NELLI Administration Sodium Chloride 10 ml 06/04/21 10:24 06/04/21 11:05 Sodium Chloride 0.9% 10 Ml Flush Syringe IV 10 ml PRN PRN Administration LINE FLUSH Sodium Chloride 50 ml 06/05/21 10:00 06/08/21 01:13 Sodium Chloride 0.9% 50 Ml Ivpb IV 06/09/21 21:01 50 ml Q24HR@2100 NELLI Administration
--- NOTE | 2021-06-09 02:16 | Vascular Lab Report ---
DUPLEX DOPPLER LOWER EXTREMITY VEINS, BILATERAL INDICATION / CLINICAL INFORMATION: COVID-19/elevated D-dimers/hypoxia/rule out DVT. TECHNIQUE: Duplex doppler imaging was performed through the veins of both lower extremities using venous dixie phillip and other maneuvers. COMPARISON: None available. FINDINGS: RIGHT COMMON FEMORAL VEIN: Negative. RIGHT FEMORAL VEIN: Negative. RIGHT POPLITEAL VEIN: Negative. RIGHT CALF VEINS: Negative. LEFT COMMON FEMORAL VEIN: Negative. LEFT FEMORAL VEIN: Negative. LEFT POPLITEAL VEIN: Negative. LEFT CALF VEINS: Negative. ADDITIONAL FINDINGS: None. IMPRESSION: 1. No sonographic evidence for DVT in either lower extremity. Signer Name: Andrey Adames MD Signed: 06/09/2021 2:12 AM Workstation Name: [id number]
[2021-06-09 06:42] LABS: Alanine Aminotransferase 61 units/L (7-56); Albumin 3.4 g/dL (3.9-5); Blood Urea Nitrogen 10 mg/dL (7-17); Calcium 8.5 mg/dL (8.4-10.2); Hemolysis Index 7
[2021-06-09 06:59] LABS: BUN/Creatinine Ratio 25
--- NOTE | 2021-06-09 09:58 | Progress Note ---
Assessment and Plan Assessment and plan: -- Acute respiratory failure with hypoxia Current Visit: Yes Status: Acute Patient is saturating room air, no need for home oxygen Wean as tolerated, continue IV Decadron, remdesivir last dose today ID following, monitor LFTs, Home O2 evaluation, home oxygen set up as needed per case management Prone positioning --Elevated D-dimers Current Visit: Yes Status: Acute CTA chest negative for PE check lower extremity venous Doppler to rule out DVT --SIRS (systemic inflammatory response syndrome) Current Visit: Yes Status: Acute All inflammatory markers are elevated consistent with systemic inflammatory response syndrome -- Bilateral interstitial pneumonia Current Visit: Yes Status: Acute Empiric antibiotics antibiotics were stopped As procalcitonin levels are normal range --Pneumonia due to COVID-19 virus Current Visit: Yes Status: Acute Continue IV Decadron, Continue remdesivir Supplemental oxygen, prone positioning --COVID-19 vaccination not done Current Visit: Yes Status: Acute Patient counseled about Covid vaccination Patient to take vaccination 6 weeks after discharge --DVT prophylaxis Current Visit: Yes Status: Acute On Lovenox and GI prophylaxis DC planning per case management; Home O2 evaluation and home O2 set up if needed Subjective Date of service: 06/06/21 Principal diagnosis: Acute respiratory failure with hypoxia, COVID-pneumonia Interval history: 35-year-old female with no significant past medical history presents to the hospital complaining of fevers, body aches, and nonproductive cough x1 week. Patient also having shortness of breath worse with exertion. She has a child at home with ear infection. Diarrhea without nausea or vomiting reported. She is not immunized for Covid. She had outpatient Covid test on the that was negative. Patient hypoxic with an O2 sat of 89 to 90% saturation on room air. Patient denies any chest pain. No headache or visual disturbances. 06/05/2021 Patient is positive for Covid Patient is on 4 to 6 L of nasal cannula oxygen Patient is doing well otherwise 06/06/2021 Patient is positive for Covid Patient 4 to 6 L of nasal cannula oxygen Patient is otherwise stable 06/07/2021; patient is requiring 2 L of nasal cannula oxygen Recheck 6-minute walk test, set up home O2 as needed Currently receiving remdesivir dexamethasone 06/08/2021; CTA chest negative for PE Check lower extremity venous Doppler for DVT Continue steroids and remdesivir ID following Home O2 evaluation borderline Resting 92% Ambulatory 90% On oxygen 97% Patient reevaluate home O2 evaluation prior to discharge Hospitalist Physical - Constitutional Vitals: Temp Pulse Resp BP Pulse Ox 98.2 F 48 L 18 107/56 97 06/09/21 04:36 06/09/21 04:36 06/09/21 04:36 06/09/21 04:36 06/09/21 04:36 General appearance: Present: mild distress, well-nourished, other (On 4 L of oxygen) Results - Labs CBC & Chem 7: 06/05/21 05:26 06/09/21 05:45 Labs: Laboratory Last Values WBC 6.4 K/mm3 (4.5-11.0) 06/05/21 05:26 RBC 4.35 M/mm3 (3.65-5.03) 06/05/21 05:26 Hgb 13.6 gm/dl (10.1-14.3) 06/05/21 05:26 Hct 39.8 % (30.3-42.9) 06/05/21 05:26 MCV 92 fl (79-97) 06/05/21 05:26 MCH 31 pg (28-32) 06/05/21 05:26 MCHC 34 % (30-34) 06/05/21 05:26 RDW 13.4 % (13.2-15.2) 06/05/21 05:26 Plt Count 243 K/mm3 (140-440) 06/05/21 05:26 Lymph % (Auto) 19.6 % (13.4-35.0) 06/05/21 05:26 [place] % (Auto) 8.5 % (0.0-7.3) H 06/05/21 05:26 Eos % (Auto) 0.1 % (0.0-4.3) 06/05/21 05:26 Baso % (Auto) 0.1 % (0.0-1.8) 06/05/21 05:26 Lymph # (Auto) 1.3 K/mm3 (1.2-5.4) 06/05/21 05:26 [place] # (Auto) 0.5 K/mm3 (0.0-0.8) 06/05/21 05:26 Eos # (Auto) 0.0 K/mm3 (0.0-0.4) 06/05/21 05:26 Baso # (Auto) 0.0 K/mm3 (0.0-0.1) 06/05/21 05:26 Seg Neutrophils % 71.7 % (40.0-70.0) H 06/05/21 05:26 Seg Neutrophils # 4.6 K/mm3 (1.8-7.7) 06/05/21 05:26 D-Dimer 1164.72 ng/mlDDU (0-234) H 06/07/21 07:57 Sodium 140 mmol/L (137-145) 06/09/21 05:45 Potassium 4.0 mmol/L (3.6-5.0) 06/09/21 05:45 Chloride 104.4 mmol/L (98-107) 06/09/21 05:45 Carbon Dioxide 23 mmol/L (22-30) 06/09/21 05:45 Anion Gap 17 mmol/L 06/09/21 05:45 BUN 10 mg/dL (7-17) 06/09/21 05:45 Creatinine 0.4 mg/dL (0.6-1.2) L 06/09/21 05:45 Estimated GFR > 60 ml/min 06/09/21 05:45 BUN/Creatinine Ratio 25 % 06/09/21 05:45 Glucose 121 mg/dL (65-100) H 06/09/21 05:45 Lactic Acid 1.60 mmol/L (0.7-2.0) 06/04/21 04:57 Calcium 8.5 mg/dL (8.4-10.2) 06/09/21 05:45 Magnesium 2.10 mg/dL (1.7-2.3) 06/04/21 00:56 Ferritin 642.3 ng/mL (10.0-200.0) H 06/07/21 07:57 Total Bilirubin 0.30 mg/dL (0.1-1.2) 06/09/21 05:45 AST 20 units/L (5-40) 06/09/21 05:45 ALT 61 units/L (7-56) H 06/09/21 05:45 Alkaline Phosphatase 65 units/L (35-129) 06/09/21 05:45 Lactate Dehydrogenase 240 units/L (91-180) H 06/07/21 07:57 C-Reactive Protein 1.70 mg/dL (0.00-1.30) H 06/07/21 07:57 Total Protein 6.5 g/dL (6.3-8.2) 06/09/21 05:45 Albumin 3.4 g/dL (3.9-5) L 06/09/21 05:45 Albumin/Globulin Ratio 1.1 % 06/09/21 05:45 Procalcitonin < 0.05 ng/mL (<0.15) 06/04/21 06:53 HCG, Qual Negative (Negative) 06/04/21 00:56 Coronavirus (PCR) Positive (Negative) A 06/04/21 Unknown Microbiology: Microbiology 06/04/21 00:56 Peripheral/Venous Blood Culture - Final NO GROWTH AFTER 5 DAYS 06/04/21 00:52 Peripheral/Venous Blood Culture - Final NO GROWTH AFTER 5 DAYS Mims/IV: Voiding Method Toilet Active Medications - Current Medications Current Medications: Generic Name Dose Route Start Last Admin Trade Name Freq PRN Reason Stop Dose Admin Acetaminophen 650 mg 06/04/21 10:24 Acetaminophen 325 Mg Tab PO Q4H PRN Pain MILD(1-3)/Fever >100.5/DENNIS Hydrocodone Bitart/Acetaminophen 2 each 06/04/21 10:24 Hydrocodone/Acetaminophen 5-325 Mg Tab PO Q6H PRN Pain, Moderate (4-6) Dexamethasone 6 mg 06/05/21 10:00 06/08/21 10:16 Dexamethasone 4 Mg Tab PO 06/14/21 10:01 6 mg DAILY NELLI Administration Enoxaparin Sodium 40 mg 06/05/21 10:00 06/08/21 10:16 Enoxaparin 40 Mg/0.4 Ml Inj SUB-Q 40 mg QDAY@1000 NELLI Administration Famotidine 20 mg 06/05/21 10:00 06/08/21 22:44 Famotidine 20 Mg Tab PO 20 mg BID NELLI Administration REMDESIVIR 100 mg/ Sodium 250 mls @ 500 mls/hr 06/06/21 21:00 06/08/21 20:40 Chloride IV 06/09/21 21:29 500 mls/hr Q24HR@2100 NELLI Administration Morphine Sulfate 1 mg 06/04/21 10:45 Morphine 2 Mg/1 Ml Inj IV Q4H PRN Pain , Severe (7-10) Ondansetron HCl 4 mg 06/04/21 10:24 Ondansetron 4 Mg/2 Ml Inj IV Q8H PRN Nausea And Vomiting Pseudoephedrine/Acetam/Chlorphenir 10 ml 06/06/21 13:18 06/06/21 21:36 Guaifenesin/Codeine 100-10mg Oral Liqd 5 Ml PO 10 ml Q6H PRN Administration Cough Sodium Chloride 10 ml 06/04/21 22:00 06/08/21 22:44 Sodium Chloride 0.9% 10 Ml Flush Syringe IV 10 ml BID NELLI Administration Sodium Chloride 10 ml 06/04/21 10:24 06/04/21 11:05 Sodium Chloride 0.9% 10 Ml Flush Syringe IV 10 ml PRN PRN Administration LINE FLUSH Sodium Chloride 50 ml 06/05/21 10:00 06/08/21 20:39 Sodium Chloride 0.9% 50 Ml Ivpb IV 06/09/21 21:01 50 ml Q24HR@2100 NELLI Administration
[2021-06-09] MEDS: DEXAMETHASONE 4 MG TAB PO SCH (10:04)
[2021-06-09] MEDS: FAMOTIDINE 20 MG TAB PO SCH (10:04)
[2021-06-09] MEDS: ENOXAPARIN 40 MG/0.4 ML INJ SUB-Q SCH (10:04)
--- NOTE | 2021-06-09 10:53 | Discharge Summary ---
Providers - Providers Date of Admission: 06/04/21 08:17 Date of discharge: 06/09/21 Attending physician: JUAN CASTILLO 06/04/21 06:37 Consult to Physician [CONS] Urgent Comment: Consulting Provider: KAIDEN RICHARD Physician Instructions: Reason For Exam: suspected covid, pneumonia, hypoxia Primary care physician: SAWSMITH Hospitalization Reason for admission: Upper respiratory symptoms/shortness of breath/COVID-19 Condition: Stable Pertinent studies: CTA chest; negative for PE Lower extremity Doppler; negative for DVT Chest x-ray; diffuse bilateral pulmonary opacities could represent pneumonia Hospital course: 35-year-old female patient with no significant past medical history not on any medication was admitted through emergency room with upper respiratory symptoms shortness of breath and unvaccinated patient Patient was admitted as PUI, chest x-ray findings consistent with bilateral pneumonia, subsequently Mendi[place] PCR test reported positive Patient was also hypoxic on admission requiring supplemental oxygen Patient was treated per COVID-19 protocols and guidelines With steroids for 10 days and remdesivir for 5 days Patient received 4 doses of remdesivir, patient encouraged prone positioning, symptoms slowly but significantly improved Patient has elevated D-dimers, CTA chest negative for PE, lower extremity venous Doppler negative for DVT Today patient is comfortable no new complaints vital signs stable Home O2 evaluation showed that patient's resting room air ambulatory room air O2 sats more than 94 to 95%, and no criteria for home oxygen Patient is cleared by ID, hemodynamically and clinically stable at discharge Discharge diagnosis: -- Acute respiratory failure with hypoxiaCurrent Visit: Yes Status: Acute Patient is saturating room air, no need for home oxygen Wean as tolerated, continue IV Decadron, remdesivir last dose today ID following, monitor LFTs, Home O2 evaluation, home oxygen set up as needed per case management Prone positioning --Elevated D-dimers Current Visit: Yes Status: Acute CTA chest negative for PE check lower extremity venous Doppler to rule out DVT --SIRS (systemic inflammatory response syndrome) Current Visit: Yes Status: Acute All inflammatory markers are elevated consistent with systemic inflammatory response syndrome -- Bilateral interstitial pneumonia Current Visit: Yes Status: Acute Empiric antibiotics antibiotics were stopped As procalcitonin levels are normal range --Pneumonia due to COVID-19 virus Current Visit: Yes Status: Acute Continue IV Decadron, Continue remdesivir Supplemental oxygen, prone positioning --COVID-19 vaccination not done Current Visit: Yes Status: Acute Stable at discharge Disposition: 01 HOME / SELF CARE / HOMELESS Final Discharge Diagnosis (Prints w/discharge instructions): COVID-19 infection. COVID-19 bilateral pneumonia. Unvaccinated patient. Elevated D- dimers[negative PE and DVT]. SIRS. Acute hypoxic respiratory failure on admission. Resolved Time spent for discharge: 35 min Core Measure Documentation - Palliative Care Palliative Care/ Comfort Measures: Not Applicable - Core Measures Any of the following diagnoses?: none Exam - Constitutional Vitals: Temp Pulse Resp BP Pulse Ox 98.2 F 48 L 18 107/56 97 06/09/21 04:36 06/09/21 04:36 06/09/21 04:36 06/09/21 04:36 06/09/21 04:36 General appearance: Present: no acute distress, well-nourished - EENT Eyes: Present: PERRL, EOM intact - Neck Neck: Present: supple, normal ROM - Respiratory Respiratory effort: normal Respiratory: bilateral: diminished, negative: rales, rhonchi, wheezing - Cardiovascular Rhythm: regular Heart Sounds: Present: S1 & S2 - Extremities Extremities: no ischemia, No edema - Abdominal General gastrointestinal: Present: soft, non-tender, non-distended, normal bowel sounds - Integumentary Integumentary: Present: clear, warm - Musculoskeletal Musculoskeletal: strength equal bilaterally, generalized weakness - Psychiatric Psychiatric: appropriate mood/affect, cooperative - Neurologic Neurologic: moves all extremities Plan Activity: advance as tolerated Diet: regular Additional Instructions: Patient strongly advised to comply with isolation precautions and protocols of COVID-19 per guidelines as instructed by the discharge nurse. If you have worsening symptoms contact MD or go to the nearest emergency room as needed. Your oxygen saturations resting room air and ambulatory room air are more than 94 to 95%, you do not need home oxygen at this point. Advised to follow-up with primary care physician in 3 to 5 days Follow up with: PRIMARY CARE, [Primary Care Provider] - 7 Days Prescriptions: dexAMETHasone [Decadron] 6 mg PO DAILY #6 tablet Famotidine [Pepcid] 20 mg PO BID #30 tablet Ascorbic Acid [Vitamin C] 500 mg PO Q12H #30 tablet Cholecalciferol Vit D3 [Vitamin D3 1,000 UNIT TAB] 1,000 unit PO QDAY #15 tablet Zinc Sulfate [Zinc] 220 mg PO BID #30 tablet
[2021-06-09 12:05] VITALS: BP 101/59
== END 2021-06-09 12:12 | disposition home or self-care (01) | DRG 177 ==
LOC: ED 23:12 → 3A 06-04 08:17
PROVIDERS: ADMIT Hospitalist; ATTEND Internal Medicine
PROC: XW033E5 Introduction of Remdesivir Anti-infective into Peripheral Vein, Percutaneous Approach, New Technology Group 5 (ICD-10-PCS; principal; 2021-06-05)
DX: U07.1 COVID-19 (principal); A41.9 Sepsis, unspecified organism; J96.01 Acute respiratory failure with hypoxia; J12.82 Pneumonia due to coronavirus disease 2019; R65.20 Severe sepsis without septic shock
CPT/HCPCS: 36415; 71045; 71275; 80048; 80053; 82140; 82728; 82947; 83615; 83735; 84145; 84703; 85025; 85379; 86140; 87040; 93970; 94760; G0378; J0456; J0696; J1100; J1650; J7030; J7050; J8540; Q9967; U0003